=== PATIENT | female | born 1975 | race African-American/Black ===

== ENCOUNTER → 2017-05-11 | Outpatient (CLI) | payer BC ==
--- NOTE | 2017-05-11 17:26 | KCIC ---
Bilateral digital screening mammogram History: Annual screening mammography Comparison: January 28, 2016 Findings: Breast Tissue Density B :There are scattered areas of fibroglandular density. Bilateral digital mammogram images are obtained with CAD. No suspicious masses, architectural distortion, or grouped microcalcifications are identified. Low lying lymph nodes are redemonstrated bilaterally. Impression: Benign findings. Recommend screening mammogram in one year. BI-RADS Category 2: Benign. PQRS compliance statement - Patient information was entered into a reminder system with a target due date for the next mammogram. Electronically signed by: Alexandra Hernández MD (05/11/2017 5:23 PM) [facility]
== END | disposition home or self-care (01) ==
LOC: KCIC MAMMO 15:16
PROVIDERS: ATTEND Family Medicine
DX: Z12.31 Encounter for screening mammogram for malignant neoplasm of breast (principal)
CPT/HCPCS: G0202; 77067